=== PATIENT | female | born 1970 | race Native Hawaiian/Other Pacific Islander ===

== ENCOUNTER 2018-12-04 23:11 | Emergency (ER) | payer BC ==
[~2018-12-04] VITALS: Ht 165.1 cm; Wt 86.2 kg
[2018-12-05] LABS: PLATELET COUNT 257 K/uL (152-353)
[2018-12-05 00:15] LABS: POTASSIUM 4.3 mmol/L (3.6-5.2)
[2018-12-05 01:22] VITALS: BP 149/67; TEMP 97.3
== END 2018-12-05 01:26 | disposition home or self-care (01) ==
LOC: ED 23:11
PROVIDERS: Emergency Medicine
DX: N20.1 Calculus of ureter (principal)
CPT/HCPCS: 36415; 80053; 81000; 85027; 96360; 96375; 99284; J1885